=== PATIENT | male | born 1950 | race Caucasian/White ===

== ENCOUNTER 2017-12-15 20:28 | Outpatient (CLI) | payer MEDICARE ==
--- NOTE | 2017-12-16 12:30 | Ultrasound Report ---
SCROTAL ULTRASOUND: 12/15/2017 HISTORY: Left testicular pain. COMPARISON: None. TECHNIQUE: Real-time scanning by the sonography with saved static images were reviewed. FINDINGS: Right side: Testicle 4 x 2.2 x 2.8 cm. Normal echotexture and blood flow. Very small right hydrocele. No varicocele. Right epididymis 0.9 x 1.2 x 1.2 cm. Left side: Testicle 4.1 x 2 x 3.1 cm. Normal echotexture and blood flow. Very small right hydrocele. No varicocele. Epididymis 1.2 x 1 x 0.8 cm with 2 small cysts, one measuring 1.2 x 0.5 x 0.6 cm and the other 0.5 x 0.4 x 0.7 cm. IMPRESSION: NEGATIVE SCROTAL ULTRASOUND. TD: 12/16/2017 12:29
== END 2017-12-15 20:29 | disposition home or self-care (01) ==
LOC: DI 20:28
PROVIDERS: ATTEND Family Medicine
DX: N50.812 Left testicular pain (principal); N50.89 Other specified disorders of the male genital organs
CPT/HCPCS: 76870; 93975

== ENCOUNTER 2021-09-18 08:11 | Day surgery (SDC) | payer MEDICARE ==
[2021-09-18] MEDS ORDERED: LACTATED RINGERS 1,000 ML IV ONE ×2 (08:38→11:00)
--- NOTE | 2021-09-18 09:25 | ANESTHESIA ---
Pre-Anesthesia VS, & Labs - Diagnosis screening colonoscopy - Procedure colonoscopy Vital Signs: Temp Pulse Resp BP Pulse Ox 36.5 C 80 12 158/87 H 96 09/18/21 08:28 09/18/21 08:28 09/18/21 08:28 09/18/21 08:28 09/18/21 08:28 Height: 5 ft 10 in Weight (kg): 82 kg Body Mass Index: 25.9 BMI Classification: Overweight - NPO >8 hours Home Medications and Allergies Home Medications: Ambulatory Orders Albuterol Sulf [Ventolin Hfa Inhaler] 1 puffs INH PRN PRN 09/17/21 Cholecalciferol [Vitamin D3] 1 cap PO DAILY 09/17/21 Famotidine [Acid-Pep] 1 tab PO PRN PRN 09/17/21 Losartan [Cozaar] 2 each PO DAILY 09/17/21 Simvastatin [Zocor] 60 mg PO DAILY 09/17/21 Tamsulosin [Flomax] 1 tab PO DAILY 09/17/21 hydroCHLOROthiazide [Hydrochlorothiazide] 25 mg PO DAILY 09/17/21 Albuterol Sulf [Ventolin Hfa Inhaler] 1 puffs INH PRN PRN 09/17/21 Cholecalciferol [Vitamin D3] 1 cap PO DAILY 09/17/21 Famotidine [Acid-Pep] 1 tab PO PRN PRN 09/17/21 Losartan [Cozaar] 2 each PO DAILY 09/17/21 Simvastatin [Zocor] 60 mg PO DAILY 09/17/21 Tamsulosin [Flomax] 1 tab PO DAILY 09/17/21 hydroCHLOROthiazide [Hydrochlorothiazide] 25 mg PO DAILY 09/17/21 Allergies/Adverse Reactions: Allergies Allergy/AdvReac Type Severity Reaction Status Date / Time No Known Drug Allergies Allergy Verified 09/17/21 12:58 Anes History & Medical History - Anesthetic History Anesthesia Complications: reports: No previous complications - Medical History Cardiovascular: reports: Hypertension Pulmonary: reports: Asthma Gastrointestinal: reports: GERD, Colon polyps, Hemorrhoids Urinary: reports: Benign prostate hypertrophy, Incontinence Musculoskeletal: reports: None Endocrine/Autoimmune: reports: None Skin: reports: None Smoking Status: Never smoker History of Cancer?: No - Surgical History General: reports: Colonoscopy Eyes Ears Nose Throat (EENT): reports: Tonsil/Adenoidectomy Cardiothoracic: Exam General: Alert Dental: WNL Mouth Opening: Greater than 4 Fingerbreadths Neck Mobility: Normal Mallampati classification: II Thyromental Distance: greater than 6 cm Respiratory: Lungs clear Cardiovascular: Regular rate, Normal S1, Normal S2 Plan Anesthesia Type: Total IV Consent for Procedure(s) Verified and Reviewed: Yes Code Status: Attempt Resuscitation ASA classification: 2-Mild systemic disease Is this case an emergency?: No
[2021-09-18] MEDS ORDERED: PROPOFOL 500 MG/50 ML 500 MG/50 ML VIAL ONE (09:52)
[2021-09-18] MEDS ORDERED: fentaNYL 100 MCG/2 ML VIAL ONE (10:39)
--- NOTE | 2021-09-18 11:07 | ANESTHESIA POST OP EVALUATION ---
Anesthesia Post Eval - Post Anesthesia Eval Vitals: Last Vital Signs Temp 36.5 C 09/18/21 08:28 Pulse 80 09/18/21 08:28 Resp 12 09/18/21 08:28 BP 158/87 H 09/18/21 08:28 Pulse Ox 96 09/18/21 08:28 CV Function Including HR & BP: Stable Pain Control: Satisfactory Nausea & Vomiting: Negative Mental Status: Baseline Respiratory Status: Airway Patent Hydration Status: Satisfactory Anesthesia Complications: None
[2021-09-18 11:22] VITALS: BP 118/68
== END 2021-09-18 08:12 | disposition home or self-care (01) ==
LOC: SDS 08:11
PROVIDERS: ATTEND Surgery
PROC: 0DBN8ZZ Excision of Sigmoid Colon, Via Natural or Artificial Opening Endoscopic (ICD-10-PCS; principal; 2021-09-18 10:00)
DX: Z12.11 Encounter for screening for malignant neoplasm of colon (principal); D12.5 Benign neoplasm of sigmoid colon; K64.8 Other hemorrhoids; K64.4 Residual hemorrhoidal skin tags; K62.4 Stenosis of anus and rectum; N40.1 Benign prostatic hyperplasia with lower urinary tract symptoms; N39.498 Other specified urinary incontinence
CPT/HCPCS: 45385; J7120

== ENCOUNTER 2021-11-21 08:11 | Outpatient (CLI) | payer MEDICARE ==
--- NOTE | 2021-11-21 10:01 | XRAY Report ---
PROCEDURE: Chest 2 View X-Ray INDICATIONS: WHEEZING TECHNIQUE: 2 view(s) of the chest. COMPARISON: None. FINDINGS: Surgical changes and devices: None. Lungs and pleura: No pleural effusions or pneumothorax. Lungs are clear. Mediastinum: Mediastinal contours are normal. Heart size is normal. Bones and chest wall: No suspicious bony abnormalities. Soft tissues appear unremarkable. There ar e degenerative changes of the thoracic spine. IMPRESSION: No acute abnormality of the chest. Reviewed by: Jatin Perez on 11/21/2021 10:00 AM [facility] Approved by: Jatin Perez on 11/21/2021 10:00 AM [facility] Station ID: [id number]
== END 2021-11-21 08:12 | disposition home or self-care (01) ==
LOC: DI.S 08:11
PROVIDERS: ATTEND Nurse Practitioner Family
DX: R06.2 Wheezing (principal)

== ENCOUNTER 2021-12-19 09:05 | Outpatient (CLI) | payer MEDICARE ==
[2021-12-21] MEDS ORDERED: ALBUTEROL 1 PUFF INH STA (09:36)
== END 2021-12-19 09:06 | disposition home or self-care (01) ==
LOC: RT 09:05
PROVIDERS: ATTEND Nurse Practitioner Family
DX: R06.2 Wheezing (principal)
CPT/HCPCS: 94060

== ENCOUNTER 2023-03-10 14:51 | Outpatient (CLI) | payer MEDICARE ==
[2023-03-10] MEDS ORDERED: ALBUTEROL 1 PUFF INH STA (18:14)
== END 2023-03-10 14:52 | disposition home or self-care (01) ==
LOC: RT 14:51
PROVIDERS: ATTEND Internal Medicine
DX: J44.9 Chronic obstructive pulmonary disease, unspecified (principal)
CPT/HCPCS: 94060; 94729